=== PATIENT | female | born 1985 | race Caucasian/White ===

== ENCOUNTER 2018-03-11 19:39 | Emergency (ER) | payer MEDICAID ==
[2018-03-11 19:51] VITALS: BP 152/79
[2018-03-11] MEDS: Ketorolac 60 MG/2 ML SDV IM ONE (20:31)
--- NOTE | 2018-03-11 20:31 | EDM.PDOC ---
ED HPI GENERAL MEDICAL PROBLEM - General Chief Complaint: Chest Pain Stated Complaint: LEFT RIB PAIN Time Seen by Provider: 03/11/18 20:00 Source of Information: Reports: Patient History Limitations: Reports: No Limitations - History of Present Illness INITIAL COMMENTS - FREE TEXT/NARRATIVE: 32 yo female presents with left sided chest wall pain. yesterday morning she was lifting er 5 year old across her body and felt a pain in her left lower chest wall. pain is worse with trunk movement. pain with deep respiration. Denies SOB or cough. generally feels well. 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: - Past Surgical History Female Surgical History: Reports: Section Social & Family History - Tobacco Use Smoking Status *Q: Current Every Day Smoker Years of Tobacco use: 10 Packs/Tins Daily: 0.5 ED ROS GENERAL - Review of Systems Review Of Systems: See Below Constitutional: Denies: Fever, Chills, Fatigue Respiratory: Denies: Shortness of Breath, Wheezing, Cough Cardiovascular: Denies: Chest Pain GI/Abdominal: Denies: Abdominal Pain ED EXAM, GENERAL - Physical Exam Exam: See Below Exam Limited By: No Limitations General Appearance: Alert, WD/WN, No Apparent Distress Respiratory/Chest: No Respiratory Distress, Lungs Clear, Normal Breath Sounds, No Accessory Muscle Use, Other (left chest wall pain at mid axillary line ribs 7 and 8). No: Crackles, Rhonchi, Wheezing Cardiovascular: Regular Rate, Rhythm, Systolic Murmur Course - Vital Signs Last Recorded V/S: Last Vital Signs Temp 36.6 C 03/11/18 19:57 Pulse 76 03/11/18 19:57 Resp 16 03/11/18 19:57 BP 152/79 H 03/11/18 19:57 Pulse Ox 97 03/11/18 19:57 - Orders/Labs/Meds Orders: Active Orders 24 hr Category Date Time Status Chest 2V [CR] Stat Exams 03/11/18 20:15 Taken Meds: Medications Discontinued Medications Generic Name Dose Route Start Last Admin Trade Name Freq PRN Reason Stop Dose Admin Ketorolac Tromethamine 60 mg 03/11/18 20:16 03/11/18 20:31 Toradol IM 03/11/18 20:17 60 mg ONETIME ONE Administration - Radiology Interpretation Free Text/Narrative:: no acute injury noted on preliminary read of x-ray Departure - Departure Time of Disposition: 20:38 Disposition: Home, Self-Care 01 Condition: Good Clinical Impression: Left-sided chest wall pain - Discharge Information *PRESCRIPTION DRUG MONITORING PROGRAM REVIEWED*: Not Applicable *COPY OF PRESCRIPTION DRUG MONITORING REPORT IN PATIENT CEFERINO: Not Applicable Instructions: Chest Wall Pain, [id number] Referrals: PCP,None [Primary Care Provider] - Forms: ED Department Discharge Additional Instructions: ice for pain control Ibuprofen 400-600 mg every 6 hours while awake for the next 3 days and as needed thereafter deep breathes every hour while awake - My Orders Last 24 Hours: My Active Orders 03/11/18 20:15 Chest 2V [CR] Stat - Assessment/Plan Last 24 Hours: My Active Orders 03/11/18 20:15 Chest 2V [CR] Stat
--- NOTE | 2018-03-12 09:04 | CR ---
Chest 2V FINDINGS: The heart and vascular structures are normal in appearance. No infiltrates or effusions are demonstrated. The skeletal structures are unremarkable. IMPRESSION: Negative exam.
== END 2018-03-11 21:10 | disposition home or self-care (01) ==
LOC: JP.ED 19:39
DX: R07.89 Other chest pain (principal); F17.210 Nicotine dependence, cigarettes, uncomplicated; X50.0XXA Overexertion from strenuous movement or load, initial encounter
CPT/HCPCS: 71046; 96372; 99284; J1885